=== PATIENT | male | born 1955 | race Caucasian/White ===

== ENCOUNTER 2018-04-08 21:01 | Emergency (ER) | payer OTHER ==
[~2018-04-08] VITALS: Ht 180.3 cm; Wt 102.1 kg
[2018-04-08 21:20] VITALS: Ht 180.3 cm; Wt 102.1 kg
[2018-04-08 23:02] LABS: PLATELET COUNT 232 x10^3mcL (130-400); RED CELL DISTRIBUTION WIDTH 14.1 % (11.5-14.5)
[2018-04-08 23:03] LABS: BASOPHIL % 0 % (0-2)
[2018-04-08 23:20] LABS: CALCIUM 9.4 mg/dL (8.5-10.1); CARBON DIOXIDE 19.2 mmol/L (21-32); CHLORIDE SERUM 102 mmol/L (98-107); CREATININE SERUM 1.3 mg/dL (0.7-1.3); GFR1 59 mL/min; GLUCOSE SERUM 359 mg/dL (74-106); POTASSIUM SERUM 3.9 mmol/L (3.5-5.1); SODIUM SERUM 137 mmol/L (136-145)
[2018-04-08 23:25] LABS: ALKALINE PHOSPHATASE 101 U/L (46-116); ALT/SGPT 50 U/L (16-63); AST/SGOT 30 U/L (15-37); BILIRUBIN TOTAL 0.8 mg/dL (0.20-1.00); TOTAL PROTEIN, SERUM 7.8 g/dL (6.4-8.2)
[2018-04-09 00:13] VITALS: BP 144/80
== END 2018-04-09 | disposition short-term general hospital (02) ==
LOC: ED 21:01
PROVIDERS: Emergency Medicine
DX: R33.9 Retention of urine, unspecified (principal); R10.30 Lower abdominal pain, unspecified; R73.9 Hyperglycemia, unspecified; Z85.46 Personal history of malignant neoplasm of prostate
CPT/HCPCS: J2270; J2405